=== PATIENT | male | born 2000 | race Caucasian/White ===

== ENCOUNTER 2019-09-09 11:53 | Emergency (ER) | payer MEDICAID ==
[~2019-09-09] VITALS: Ht 188 cm; Wt 81.6 kg
--- NOTE | 2019-09-09 11:53 | NUR ---
Patient BIBA BLS, transferred to bed 6. RN evaluating patient at bedside.
[2019-09-09 11:56] VITALS: BP 155/96
--- NOTE | 2019-09-09 12:03 | NUR ---
19 YO MALE BIBA FROM HOME C/O ANXIETY WITH N/V. PT WAS GIVEN 8MG IV ZOFRAN IN THE FIELD. PT STATES THAT HE IS OUT OF MEDS AND THIS IS THE ANNIVERSARY OF HIS FATHERS WHICH IS CAUSING THE ANXIETY. ANXIETY IS CAUSING N/V. PT STATES THAT ABD AND EPIGASTRIC PAIN D/T VOMITING.
[2019-09-09] MEDS ORDERED: NACL 0.9% 1,000 ML IV SCH (12:13)
[2019-09-09] MEDS ORDERED: ALUMINUM HYD/MAG/SIMETHICONE 30 ML, DICYCLOMINE HCL LIQUID 20 MG, LIDOCAINE VISCOUS 2% ... PO ONE ×3 (12:15)
[2019-09-09] MEDS ORDERED: FAMOTIDINE 20 MG/2 ML VIAL IVP ONE (12:15)
[2019-09-09] MEDS ORDERED: KETOROLAC 15 MG/ML VIAL IVP ONE (12:15)
[2019-09-09] MEDS ORDERED: ONDANSETRON 4 MG/2 ML VIAL IVP ONE (12:15)
[2019-09-09] MEDS ORDERED: ALUMINUM HYD/MAG/SIMETHICONE 30 ML UDC ONE (12:22)
[2019-09-09] MEDS ORDERED: DICYCLOMINE HCL LIQUID 10 MG/5 ML UDC ONE (12:22)
[2019-09-09] MEDS ORDERED: LIDOCAINE VISCOUS 2% 20 ML UDC ONE (12:22)
[2019-09-09 12:37] LABS: BASOPHILS % (AUTO) 0.3 % (0.0-2.0); EOSINOPHILS % (AUTO) 0.1 % (0.0-4.0); HEMATOCRIT 46.2 % (36-52); HEMOGLOBIN 15.8 g/dL (12.0-18.0); LYMPHOCYTES # (AUTO) 1.5 K/uL (2.0-11.5); LYMPHOCYTES % (AUTO) 10.6 % (20.5-51.1); MEAN CORPUSCULAR HEMOGLOBIN 31 pg (27-31); MEAN CORPUSCULAR HGB CONC 34 g/dL (33-37); MONOCYTES % (AUTO) 7.5 % (1.7-9.3); NEUTROPHILS # (AUTO) 11.3 K/uL (1.8-7.7); NEUTROPHILS % (AUTO) 81.5 % (42.2-75.2); PLATELET COUNT (AUTO) 335 K/uL (140-450); RED BLOOD CELL COUNT(AUTO) 5.08 MIL/uL (4.20-6.10); WHITE BLOOD COUNT (AUTO) 13.9 K/uL (4.5-11.0)
[2019-09-09 12:58] LABS: ALBUMIN 4.2 g/dL (3.4-5.0); ANION GAP 17.6 (8-16); CARBON DIOXIDE 25.4 mmol/L (21-32); CREATININE 1.1 mg/dL (0.6-1.3); TOTAL BILIRUBIN 1.4 mg/dL (0.0-1.0)
--- NOTE | 2019-09-09 13:39 | NUR ---
JENNY Lewis is evaluating the patient at bedside.
[2019-09-09 13:47] LABS: BILIRUBIN,URINE 2+ (NEGATIVE); BLOOD, URINE 1+ (NEGATIVE); COLOR,URINE YELLOW (YELLOW); LEUKOCYTE ESTERASE ,URINE NEGATIVE (NEGATIVE); NITRITE, URINE NEGATIVE (NEGATIVE); UGLUCOSE NEGATIVE (NEGATIVE)
[2019-09-09 13:50] LABS: RBC,URINE 0-5 /HPF (0-5); WBC,URINE 0-5 /HPF (0-5)
[2019-09-09 13:51] LABS: APPEARANCE,URINE SLIGHTLY HAZY (CLEAR)
[2019-09-09 13:58] VITALS: BP 140/82
--- NOTE | 2019-09-09 13:59 | NUR ---
Patient discharged with v/s stable. Written and verbal after care instructions given and explained. Patient alert, oriented and verbalized understanding of instructions. Ambulatory with steady gait. All questions addressed prior to discharge. ID band removed. Patient advised to follow up with PMD. Rx of TYLENOL, PEPCID AND ZOFRAN given. Patient educated on indication of medication including possible reaction and side effects. Opportunity to ask questions provided and answered.
== END 2019-09-09 13:59 | disposition home or self-care (01) ==
LOC: MED 11:53
DX: R10.9 Unspecified abdominal pain (principal); F41.9 Anxiety disorder, unspecified; F32.9 Major depressive disorder, single episode, unspecified; R11.2 Nausea with vomiting, unspecified
CPT/HCPCS: 36415; 80053; 81001; 83690; 85025; 96361; 96374; 96375; 99284; J1885; J2405; J3490; J7030

== ENCOUNTER 2019-10-09 16:17 | Emergency (ER) | payer MEDICAID ==
[~2019-10-09] VITALS: Ht 182.9 cm; Wt 70.3 kg
[2019-10-09 16:27] VITALS: BP_SYST 141; BP_SYST 176; BP_DIAS 101; BP_DIAS 22
--- NOTE | 2019-10-09 16:27 | NUR ---
Patient ambulated to bed 1. RN evaluating patient at bedside.
[2019-10-09] MEDS ORDERED: ONDANSETRON 4 MG ODT PO ONE (16:40)
[2019-10-09] MEDS ORDERED: ALPRAZolam 0.5 MG TAB PO ONE (16:40)
[2019-10-09] MEDS ORDERED: KETOROLAC 30 MG/ML VIAL IM ONE (16:40)
--- NOTE | 2019-10-09 16:48 | NUR ---
C/O ANXIETY ATTACK, DRY HEAVING AND SHAKING, CP WITH ANXIETY PMH- DEPRESSION, ANXIETY, PTSD
--- NOTE | 2019-10-09 16:50 | NUR ---
TORADOL AND ZOFRAN ADMINISTERED PT STATES HE WANTS TO WAIT FOR XANAX UNTIL HE IS NO LONGER NAUSEATED
--- NOTE | 2019-10-09 17:00 | NUR ---
PT VOMITED AND WAS CONCERNED THAT HIS ZOFRAN WAS NOT WORKING. ADV PT TO WAIT A FEW MINUTES AND WE WILL REASSESS
--- NOTE | 2019-10-09 17:30 | NUR ---
PT STATED THAT HE IS NOW DRY HEAVING. ADV PT TO TRY AND NOT DRINK MUCH WATER.
[2019-10-09] MEDS ORDERED: ACETAMINOPHEN EXTRA STRENGTH 500 MG TAB PO ONE (18:00)
[2019-10-09 18:20] VITALS: BP 132/78
--- NOTE | 2019-10-09 18:22 | NUR ---
Patient discharged with v/s stable. Written and verbal after care instructions given and explained. Patient alert, oriented and verbalized understanding of instructions. Ambulatory with steady gait. All questions addressed prior to discharge. ID band removed. Patient advised to follow up with PMD. Rx of lexapro, Remeron given. Patient educated on indication of medication including possible reaction and side effects. Opportunity to ask questions provided and answered.
== END 2019-10-09 18:22 | disposition home or self-care (01) ==
LOC: MED 16:17
DX: F41.0 Panic disorder [episodic paroxysmal anxiety] (principal); F32.9 Major depressive disorder, single episode, unspecified; F43.10 Post-traumatic stress disorder, unspecified
CPT/HCPCS: 93005; 96372; 99284; J1885; Q0162